=== PATIENT | male | born 1965 | race Caucasian/White ===

== ENCOUNTER 2021-10-17 12:00 | Emergency (ER) | payer OTHER ==
[~2021-10-17] VITALS: Ht 182.9 cm; Wt 127.0 kg
[2021-10-17] MEDS ORDERED: PREDNISONE20 MG PO (14:59)
[2021-10-17] MEDS ORDERED: HYDROCODON-ACE1 EA10 PO (14:59)
== END 2021-10-17 15:12 | disposition home or self-care (01) ==
LOC: ED 12:00
DX: M54.9 Dorsalgia, unspecified (principal); I10 Essential (primary) hypertension; Z87.442 Personal history of urinary calculi
CPT/HCPCS: 36415; 74176; 80053; 81001; 85025; J1885; J2270; J2405; J7030

== ENCOUNTER 2021-12-26 08:04 | Emergency (ER) | payer OTHER ==
[~2021-12-26] VITALS: Ht 182.9 cm; Wt 129.4 kg
[~2021-12-26 08:04] MED LIST: HYDROCODON-ACE1 EA10 PO; PREDNISONE20 MG PO
[2021-12-26] MEDS ORDERED: ATORVASTATIN CA40 MG PO (08:46)
[2021-12-26] MEDS ORDERED: ESCITALOPRAM OX20 MG PO (08:46)
[2021-12-26] MEDS ORDERED: BUPROPION XL150 MG PO (08:46)
[2021-12-26] MEDS ORDERED: ALLOPURINOL100 MG PO (08:46)
[2021-12-26] MEDS ORDERED: LISINOPRIL20 MG PO (08:47)
[2021-12-26] MEDS ORDERED: TAMSULOSIN HCL0.4 MG PO (08:47)
[2021-12-26] MEDS ORDERED: LISINOPRIL-HCT1 EAC1 PO (08:47)
[2021-12-26] MEDS ORDERED: MELOXICAM7.5 MG PO (08:47)
[2021-12-26] MEDS ORDERED: TRAZODONE HCL150 MG PO (08:48)
[2021-12-26] MEDS ORDERED: HYDROCODON-ACE1 EA10 PO (09:00)
[2021-12-26] MEDS ORDERED: PREDNISONE20 MG PO (09:00)
== END 2021-12-26 09:08 | disposition home or self-care (01) ==
LOC: ED 08:04
DX: M54.50 Low back pain, unspecified (principal); M54.6 Pain in thoracic spine; I10 Essential (primary) hypertension; Z79.52 Long term (current) use of systemic steroids; Z79.899 Other long term (current) drug therapy; Z87.442 Personal history of urinary calculi
CPT/HCPCS: 99283; J7512

== ENCOUNTER 2024-02-05 18:44 | Emergency (ER) | payer OTHER ==
[~2024-02-05] VITALS: Ht 182.9 cm; Wt 129.7 kg
[~2024-02-05 18:44] MED LIST changes: +ALLOPURINOL100 MG PO; +AMOX TR-K CLV1 EAC1 PO; +ATORVASTATIN CA40 MG PO; +BENZONATATE100 MG PO; +BUPROPION XL150 MG PO; +DIVALPROEX SOD500 MG PO; +ESCITALOPRAM OX20 MG PO; +LAMOTRIGINE200 MG PO; +LISINOPRIL-HCT1 EAC1 PO; +LISINOPRIL20 MG PO; +LISINOPRIL40 MG PO; +MELOXICAM7.5 MG PO; +METHYLPHENIDATE54 MG PO; +SILDENAFIL20 MG PO; +TAMSULOSIN HCL0.4 MG PO; +TRAZODONE HCL150 MG PO
[2024-02-05 20:28] LABS: BASOPHILS 0.6 % (0-2); EOSINOPHILS 1.5 % (0-6); HEMATOCRIT 37.6 % (35.0-50.0); HEMOGLOBIN 12.8 g/dL (12.0-18.0); LYMPHOCYTES 20.6 % (24-44); MCH 29.8 (27-36); MCV 87.6 fl (81-99); MONOCYTES 5.8 % (0-12); NEUTROPHILS 71.5 % (39-80); PLATELET COUNT 189 K/uL (140-440); RBC 4.29 M/ul (4.3-5.7); RDW 12.9 (10.5-15.0)
[2024-02-05 20:54] LABS: ALBUMIN 3.8 g/dL (3.4-5.0); ALBUMIN/GLOBULIN RATIO 1.15 (1.1-2.4); BILIRUBIN, TOTAL 0.6 ng/dL (0.2-1.0); BUN/CREATININE RATIO 11.94 (6.0-28.6); CALCIUM 9.3 mg/dL (8.5-10.1); CREATININE, SERUM 1.34 mg/dL (0.70-1.30); PROTEIN, TOTAL 7.1 g/dL (6.4-8.2); TSH, 3RD GENERATION 1.49 uIU/mL (0.358-3.740)
[2024-02-05 21:11] LABS: BILIRUBIN, URINE NEGATIVE (negative); BLOOD/HGB, URINE NEGATIVE (Negative); KETONE, URINE NEGATIVE (Negative); LEUK ESTERASE, URINE NEGATIVE (negative); NITRITE, URINE NEGATIVE (negative); PH, URINE 5.5 (5-7)
[2024-02-05 21:26] LABS: AMPHETAMINES, URINE NEGATIVE (NEGATIVE); BARBITURATES, URINE NEGATIVE (NEGATIVE); BENZODIAZEPINE, URINE NEGATIVE (NEGATIVE); BUPRENORPHINE, URINE NEGATIVE (NEGATIVE); CANNABINOID, URINE NEGATIVE (NEGATIVE); COCAINE, URINE NEGATIVE (NEGATIVE); ECSTASY, URINE POSITIVE (NEGATIVE); FENTANYL, URINE NEGATIVE (NEGATIVE); METHADONE, URINE NEGATIVE (NEGATIVE); OPIATES, URINE NEGATIVE (NEGATIVE); OXYCODONE, URINE NEGATIVE (NEGATIVE); PHENCYCLIDINE, URINE NEGATIVE (NEGATIVE)
[2024-02-05 21:48] LABS: INFLUENZA B NAA NEGATIVE (NEGATIVE); RESPIRATORY SYNCYTIAL VIR NAA NEGATIVE (NEGATIVE)
[2024-02-05] MEDS ORDERED: HYDROmorphone HCL 1 MG/ML SYR IV PRN (22:15)
[2024-02-05] MEDS ORDERED: diphenhydrAMINE HCL 50 MG/ML VIAL IV ONE (23:45)
[2024-02-05] MEDS ORDERED: ACETAMINOPHEN 500 MG TAB PO ONE (23:45)
[2024-02-05] MEDS ORDERED: PROCHLORPERAZINE EDISYLATE 10 MG/2 ML VIAL IV ONE (23:45)
[2024-02-06] MEDS ORDERED: HYDROCODON-ACE1 EA10 PO (05:11)
[2024-02-06 05:20] VITALS: BP 117/74
--- NOTE | 2024-02-07 21:38 | EKG ---
[facility] [address] [facility] [place] [address] Signed Sinus bradycardia with 1st degree AV block Otherwise normal ECG No previous ECGs available Confirmed by Kadi Galaviz MD ([id number]) on 02/07/2024 9:38:41 PM Electronically Signed By: KADI GALAVIZ DO 02/07/242137 PATIENT NAME: LOREDOMARTIN Electrocardiogram DATE OF : 67 PHYSICIAN: KADI GALAVIZ DO REPORT #: [id number] REPORT IS CONFIDENTIAL AND NOT TO BE RELEASED WITHOUT AUTHORIZATION
== END 2024-02-06 05:20 | disposition home or self-care (01) ==
LOC: ED 18:44
PROVIDERS: Internal Medicine
DX: S06.5XAA Traumatic subdural hemorrhage with loss of consciousness status unknown, initial encounter (principal); J44.9 Chronic obstructive pulmonary disease, unspecified; I10 Essential (primary) hypertension; Z79.899 Other long term (current) drug therapy; V49.9XXA Car occupant (driver) (passenger) injured in unspecified traffic accident, initial encounter
CPT/HCPCS: 36415; 70450; 70496; 70498; 71045; 80053; 80307; 81003; 84443; 84484; 85025; 87502; 93005; 93010; 96374; 96375; 99284-25; A9270; G0480; J0780; J1200; Q9967; U0002

== ENCOUNTER 2024-02-10 13:14 | Emergency (ER) | payer OTHER ==
[~2024-02-10] VITALS: Ht 182.9 cm; Wt 127.5 kg
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
[2024-02-10 14:06] LABS: BASOPHILS 0.3 % (0-2); EOSINOPHILS 0.8 % (0-6); HEMATOCRIT 37.5 % (35.0-50.0); HEMOGLOBIN 12.9 g/dL (12.0-18.0); LYMPHOCYTES 14.7 % (24-44); MCH 29.9 (27-36); MCHC 34.3 g/dl (30-36); MCV 87.3 fl (81-99); MONOCYTES 5.8 % (0-12); NEUTROPHILS 78.4 % (39-80); PLATELET COUNT 199 K/uL (140-440); RDW 12.9 (10.5-15.0)
[2024-02-10] MEDS ORDERED: TRAMADOL HCL50 MG PO (14:18)
[2024-02-10] MEDS ORDERED: ONDANSETRON ODT4 MG PO (14:18)
[2024-02-10 14:20] LABS: AMPHETAMINES, URINE POSITIVE (NEGATIVE); BARBITURATES, URINE NEGATIVE (NEGATIVE); BENZODIAZEPINE, URINE NEGATIVE (NEGATIVE); BUPRENORPHINE, URINE NEGATIVE (NEGATIVE); CANNABINOID, URINE NEGATIVE (NEGATIVE); COCAINE, URINE NEGATIVE (NEGATIVE); ECSTASY, URINE POSITIVE (NEGATIVE); FENTANYL, URINE NEGATIVE (NEGATIVE); METHADONE, URINE NEGATIVE (NEGATIVE); OPIATES, URINE NEGATIVE (NEGATIVE); OXYCODONE, URINE NEGATIVE (NEGATIVE); PHENCYCLIDINE, URINE NEGATIVE (NEGATIVE)
[2024-02-10 14:26] LABS: PARTIAL THROMBOPLASTIN TIME 26.6 Sec (22.9-41.3)
[2024-02-10 14:27] LABS: INR 1.02 (0.80-1.30); PROTIME 12.7 Sec (11.2-14.2)
[2024-02-10 14:31] LABS: ALBUMIN 3.5 g/dL (3.4-5.0); ALBUMIN/GLOBULIN RATIO 1.09 (1.1-2.4); ANION GAP 10.5 (7-21); BILIRUBIN, TOTAL 0.4 ng/dL (0.2-1.0); BUN/CREATININE RATIO 9.75 (6.0-28.6); CALCIUM 8.6 mg/dL (8.5-10.1); CREATININE, SERUM 1.23 mg/dL (0.70-1.30); POTASSIUM 3.5 mmol/L (3.5-5.1); PROTEIN, TOTAL 6.7 g/dL (6.4-8.2)
[2024-02-10 14:32] LABS: ALCOHOL, MEDICAL <3 ng/dL (<3); MAGNESIUM 1.7 mg/dL (1.8-2.4)
[2024-02-10] MEDS ORDERED: ACETAMINOPHEN 500 MG TAB PO ONE ×2 (15:45→19:00)
[2024-02-10] MEDS ORDERED: TRAMADOL HCL 50 MG TAB PO ONE (19:15)
[2024-02-10] MEDS ORDERED: MIDAZOLAM HCL 2 MG/2 ML VIAL IV ONE (21:45)
[2024-02-10 21:55] VITALS: BP 141/90
--- NOTE | 2024-02-11 07:49 | EKG ---
[facility] [address] [facility] [place], [place] [address] Signed Sinus bradycardia Left axis deviation Abnormal ECG When compared with ECG of 05-FEB-2024 20:10, No significant change was found Confirmed by Ashley Young MD ([id number]) on 02/11/2024 7:49:12 AM Electronically Signed By: ASHLEY YOUNG MD 02/11/24 0749 PATIENT NAME: MARTIN LOREDO Electrocardiogram DATE OF : 67 PHYSICIAN: ASHLEY YOUNG MD REPORT #: [id number] REPORT IS CONFIDENTIAL AND NOT TO BE RELEASED WITHOUT AUTHORIZATION
== END 2024-02-10 21:55 | disposition short-term general hospital (02) ==
LOC: ED 13:14
PROVIDERS: Emergency Medicine
DX: S06.5X1A Traumatic subdural hemorrhage with loss of consciousness of 30 minutes or less, initial encounter (principal); W19.XXXA Unspecified fall, initial encounter; G44.89 Other headache syndrome; I10 Essential (primary) hypertension; J44.89 Other specified chronic obstructive pulmonary disease; Z79.899 Other long term (current) drug therapy
CPT/HCPCS: 36415; 70450; 70496; 70498; 71045; 80053; 80307; 83735; 83880; 84484; 85025; 85610; 85730; 93005; 93010; 99285-25; A9270; G0480; J2250; Q3014